=== PATIENT | male | born 1980 | race American Indian/Alaskan Native ===

== ENCOUNTER 2020-09-08 07:40 | Day surgery (SDC) | payer OTHER ==
[~2020-09-08 07:40] MED LIST: SODIUM CHLORIDE 0.9% 1000 ML 1,000 ML IV SCH
--- NOTE | 2020-09-08 08:03 | Anesthesia Consultation ---
Anesthesia Consult and Med Hx Date of service: 09/08/20 - Airway Anesthetic Teeth Evaluation: Good ROM Head & Neck: Adequate Mental/Hyoid Distance: Adequate Mallampati Class: Class I Intubation Access Assessment: Good - Pulmonary Exam CTA: Yes - Pre-Operative Health Status ASA Pre-Surgery Classification: ASA2 Proposed Anesthetic Plan: MAC - Pulmonary Hx Smoking: Yes (Cigar) Hx Respiratory Symptoms: No Hx Sleep Apnea: No - Cardiovascular System Hx Hypertension: Yes Hx Heart Attack/AMI: No Hx Angina: No - Central Nervous System Hx Seizures: No CVA: No Hx Psychiatric Problems: No - Gastrointestinal Hx Gastroesophageal Reflux Disease: No - Endocrine Hx Renal Disease: No Hx Liver Disease: No Hx Insulin Dependent Diabetes: No Hx Non-Insulin Dependent Diabetes: No Hx Thyroid Disease: No - Other Systems Hx Alcohol Use: Yes (Sparingly) Hx Substance Use: No Hx Obesity: No
--- NOTE | 2020-09-08 08:15 | Anesthesia Day of Surgery ---
Anesthesia Day of Surgery - Day of Surgery Patient Examined: Yes Patient H&P Reviewed: Yes Patient is NPO: Yes Beta Blockers: No Cardiac Clearance: No Pulmonary Clearance: No
[2020-09-08] MEDS ORDERED: WATER FOR IRRIG STERILE 1,000 ML BOTTLE ONE (08:21)
[2020-09-08] MEDS ORDERED: propofoL 200 MG/20 ML VIAL IV ONE ×2 (08:24→08:43)
[2020-09-08] MEDS ORDERED: LIDOCAINE MPF (2%) 20 MG/1 ML VIAL 5 ML ONE (08:27)
--- NOTE | 2020-09-08 09:03 | Procedure Note ---
Date of procedure: 09/08/20 Pre-op diagnosis: S/P Colostomy and Partial Colon Resection from Diverticulitis Post-op diagnosis: other (S/P Colostomy/ No Diverticuli noted/Solitary,Proximal Transverse Colon Polyp (removed by cold, snare polypectomy)) Procedure: Colonoscopy with cold Snare Polypectomy (Polyp retrieved with a Cold Biopsy) Anesthesia: MAC Surgeon: CIARRA ABARCA Estimated blood loss: minimal Pathology: list Specimen disposition: to lab Condition: stable Disposition: same day (Avoid aspirin and NSAID for 5 days; otherwise resume home medication and follow up in 1 to 2 weeks ([phone]).)
--- NOTE | 2020-09-08 09:15 | Operative Report ---
DATE OF SURGERY: 09/08/2020 INDICATIONS: The patient is a 40-year-old -[place] gentleman, who had a ruptured diverticula and subsequently had to have partial colon resection and a colostomy. He is to have reversal of his colostomy done for which he is having a colonoscopy prior to that procedure. DESCRIPTION OF PROCEDURE: Procedure was done after getting informed consent with MAC anesthesia. Instrument was passed through the colostomy stoma and onto the cecum. The cecum was also viewed in the retroverted fashion. No additional pathology was noted in the cecum and the ascending colon visualization was fair to good. In the proximal transverse colon, there was a 9 mm sessile polyp noted that was removed by cold snare polypectomy and retrieved by grabbing it with a cold biopsy forceps. No additional pathology was noted in the remaining part of the transverse colon, the descending colon and part of the sigmoid. The rectum was not visualized. ASSESSMENT: History of ruptured diverticulitis, status post colostomy, partial colon resection, colonoscopy done through the colostomy solitary proximal colon, proximal transverse colon, polyp removed by cold snare polypectomy. No diverticula noted. There was minimal bleeding from the biopsy sites. No complications associated with the procedure. The patient may proceed forward with surgical reversal of the colostomy. Procedure was done in the GI lab with the assistance of the GI lab team, which included the GI nurse, the bioprocessing manufacturing technician ___ and with assistance of anesthesia. TID: [id number] RECEIPT: [id number] SEMAJ/BRENDON
[2020-09-08] MEDS ORDERED: hydrALAZINE 20 MG/1 ML INJ ONE (09:25)
[2020-09-08] MEDS ORDERED: hydrALAZINE 20 MG/1 ML INJ IV ONE (09:30)
[2020-09-08] MEDS ORDERED: hydrALAZINE 20 MG/1 ML INJ IV NR (09:40)
[2020-09-08 10:29] VITALS: BP 143/95
--- NOTE | 2020-09-08 12:28 | Post Anesthesia Evaluation ---
- Post Anesthesia Evaluation Patient Participated: Yes Airway Patent: Yes Stable Respiratory Function: Yes Nausea/Vomiting: No Temp > 96.8F: Yes Pain Manageable: Yes Adequeate Hydration: Yes Anesthesia Complications: No
== END 2020-09-08 10:30 | disposition home or self-care (01) ==
LOC: GIO 07:40
DX: Z12.11 Encounter for screening for malignant neoplasm of colon (principal); D12.3 Benign neoplasm of transverse colon; Z93.3 Colostomy status; Z88.8 Allergy status to other drugs, medicaments and biological substances; Z87.891 Personal history of nicotine dependence; I10 Essential (primary) hypertension; K57.30 Diverticulosis of large intestine without perforation or abscess without bleeding; Z72.89 Other problems related to lifestyle; Z98.890 Other specified postprocedural states
CPT/HCPCS: 45385; 88305; J0360; J2704; J7030